=== PATIENT | female | born 1990 | race Caucasian/White ===

== ENCOUNTER 2017-02-08 01:54 | Emergency (ER) | payer SELFPAY ==
--- NOTE | 2017-02-08 06:48 | ED NURSING NOTES ---
Clinical Report - Nurses [facility] [address] [place] [address] 02/08/2017 1:57 Patient: HONG ESCAMILLA TRIAGE Triage time 01:59. Acuity: LEVEL 3. Chief Complaint: DEPRESSION and SUICIDAL THOUGHTS. --02:04 Cynthia RBrookeN. 01:59 02/08/17. BP: 132/87. HR: 87. RR: 18. O2 saturation: 97%. Temp: 98.2 F. Pain level now: 010. --02:04 Cynthia RBrookeN. Weight: 77.1 kg. Height/Length: 67 inches. BMI: 26.6. --02:03 Cynthia R.N. Medications None. --02:00 Cynthia RBrookeN. Allergies No Known Drug Allergy. --02:00 Cynthia RBrookeN. History Historian: patient. Arrived in police custody. Onset: just prior to arrival. ( pt was picked up at the safeway by police, pt was drinking motor oil and beers). Treatment SUPERVISOR LACE TEARING: None. PAST MEDICAL HX: Immunizations: up-to-date. Last normal menstrual period- 2 weeks ago. SOCIAL HX: Heavy tobacco smoker- less than 1 pack per day. Regular alcohol use; consumes beer daily and liquor daily. Last drink was just prior to arrival. Patient smells of ETOH in the emergency department. History of drug use: marijuana. Recently used drugs yesterday. No infectious disease exposure. SELF HARM ASSESSMENT: A self harm assessment was performed. The patient answered "yes" to the question "Have you recently felt down, depressed, or hopeless?", "Have you noticed less interest or pleasure in doing things?", "Do you have thoughts of harming or killing yourself?", "Are you here because you tried to hurt yourself?" and "Have you ever tried to hurt yourself before today?" and "no" to the question "Have you recently had thoughts about harming or killing others?" and "Do you have any dangerous items in your possession?". She was placed in a safe room in direct sight of the nurses station. Clothes and valuables were removed and placed at the nurses station. ABUSE ASSESSMENT: Abuse assessment: The patient was asked "Do you feel safe in your home?" The patient was hesitant in responding to questions. ED physician notified. --02:04 Khadijah Marie The patient describes feelings of depression. --02:04 Khadijah Marie ( pt states she had a fight with her boyfriend yulisa, pt actually denies drinking motor oil but police state she was seen drinking motor oil). --02:16 Khadijah Marie PROBLEMS: Depression. --02:01 Khadijah Marie ADDITIONAL SURGERIES: no known surgeries. Interventions ID band on patient. To treatment room. --02:04 Khadijah Marie PHYSICAL ASSESSMENT Ambulatory to room. GENERAL / NEURO / PSYCH: Alert. Oriented X 4. Appears anxious. Speech within normal limits. Patient's mood/affect appears tearful. Patient appears calm and cooperative. Good eye contact. Patient appears well-nourished and neat and clean. RESPIRATORY: Respirations not labored. Breath sounds within normal limits. CVS: Normal heart rate and rhythm. Capillary refill less than 2 seconds. GI / : Abdomen soft and nontender. Bowel sounds within normal limits. SKIN: Skin intact. Skin is warm and dry. Skin color is within normal limits. --02:05 Khadijah Marie NURSING PROGRESS NOTES 02:06 02/08/2017 Site #1 started via IV in the right hand with an 20g angiocath, with aseptic technique and good blood return; one attempt. Blood drawn: rainbow set. Labeled in the presence of the patient and sent to the lab. Saline lock flushed with 10 mL saline. --02:06 Jon Marie. clinical research monitor, pulse oximeter and NIBP monitor placed on patient. Patient gowned. Patient identifiers checked. Call light placed in reach. Side rails up. Bed placed in lowest position. Brakes of bed on. --02:06 Khadijah Marie ( pt resting in bed at this time, pt is tearful at this time, boyfriend did come to the hospital but was not allowed back to see the pt, pt was aware that he was here, boyfriend was told pt was here and safe per pt's request but no other information was given to the boyfriend). --03:17 Khadijah Marie ( pt resting in bed, no distress noted). --04:09 Khadijah Marie 04:09 02/08/17. BP: 102/67. HR: 84. RR: 18. O2 saturation: 97%. Temp: deferred. Pain level now: 010. --04:10 Jon Marie. BREATHALYZER: Breathalyzer (.89). --04:46 Khadijah Marie ( called PAT team and was told they do not do evaluation on involuntary with no insurance. I spoke to Kasie.). --04:57 Khadijah Marie ( Vincent called PAT team back and they are in route. The PAT team thought the pt had already been evaluated and we were asking for an involuntary.). --05:00 Khadijah Marie ( pt ambulated tot he restroom, no complications, pt awaiting PAT team arrival at this time.). --05:23 Khadijah Marie ( PAT team in room). --06:37 Khadijah Marie DISPOSITION / DISCHARGE 06:51 02/08/2017 Site #1 removed upon discharge. Catheter intact. Bandaid applied. --06:51 Khadijah Marie Departure time: 06:53. Condition at departure: improved. No learning barriers present. Discharge instructions provided and reviewed with the patient. Reviewed warnings (stay with responsible adult). Reviewed referral to a psychiatrist and crisis hotline for followup. Summary of care provided to patient via paper. Patient verbalized understanding. Written instructions provided in Spanish. No medication instructions, treatment instructions, diet instructions, activity restrictions or note given. No follow up contact number given or stop smoking instructions. The patient was discharged by the physician. She was discharged home and accompanied by family. She left the Emergency Department ambulatory and via private vehicle. Parent driving. FALL RISK ASSESSMENT: Fall risk assessment completed. No fall risk identified. --06:53 Khadijah Marie 06:51 02/08/17. BP: 136/74. HR: 84. RR: 18. O2 saturation: 99%. Temp: deferred. Pain level now: 010. --06:53 Khadijah Marie Locked/Released at 02/08/2017 6:56 by Khadijah Marie
--- NOTE | 2017-02-08 06:48 | ED CLINICAL REPORT ---
Clinical Report - Physicians/Mid Levels [facility] [address] [place] [address] 02/08/2017 1:57 Patient: HONG ESCAMILLA Time Seen: 02:20 Feb 08 2017. Historian- patient and police. Referred by patient's friend. CPT: ER phys charges level 4 (#[id number]). HISTORY OF PRESENT ILLNESS Chief Complaint: DEPRESSED and SUICIDAL THOUGHTS and (( pt states she had a fight with her boyfriend yulisa, pt actually denies drinking motor oil but police state she was seen drinking motor oil).). This started just prior to arrival. The patient has experienced situational problems. Recent alcohol consumption. Has been depressed and angry. The symptoms are described as moderate. No injury is present. Similar symptoms previously: REVIEW OF SYSTEMS No headache, dizziness, weakness, chest pain or palpitations. No abdominal pain, vomiting, diarrhea, black stools or fever. No sore throat, cough, difficulty breathing, skin rash or enlarged lymph nodes. All systems otherwise negative, except as recorded above. PAST HISTORY Depression. Additional Surgeries: no known surgeries. Medications: None. Allergies: No Known Drug Allergy. SOCIAL HISTORY Heavy tobacco smoker (cigarette)- 1 pack per day. Occasional alcohol use. History of drug use: marijuana. ADDITIONAL NOTES The nursing notes have been reviewed. PHYSICAL EXAM Vital Signs: 02/08/2017 01:59 BP: 132/87. HR: 87. RR: 18. O2 saturation: 97%. Temp: 98.2 F. Pain level now: 0/10. Appearance: Alert. No acute distress. Appearance is normal. Eyes: Pupils equal, round and reactive to light. Neck: Normal inspection. CVS: Normal heart rate and rhythm. Heart sounds normal. Respiratory: Breath sounds normal. Chest nontender. Abdomen: Soft and nontender. Back: No tenderness. Skin: Skin warm. Normal skin color. Extremities: Extremities exhibit normal ROM. Psych / Neuro: Oriented X 3. Appears depressed. Speech normal. Cognition normal. Thought process and content normal. Insight and judgement normal. Cranial nerves normal (as tested). No cerebellar findings. No motor deficit. No sensory deficit. Reflexes normal. LABS, X-RAYS, AND EKG Laboratory Tests: UA-Culture if indicated: (TOMASA: 02/08/2017 02:02) ( [facility] 02/08/[facility] 02:32) Final results Test Result Flag Units (Reference) URINE COLOR YELLOW URINE APPEARANCE CLEAR URINE GLUCOSE NEGATIVE (NEGATIVE) URINE BILIRUBIN NEGATIVE (NEGATIVE) URINE KETONE NEGATIVE (NEGATIVE) URINE SPECIFIC GRAVITY 1.020 (1.010-1.030) URINE PH 6.5 (5.0-8.0) URINE PROTEIN NEGATIVE (NEGATIVE) URINE UROBILINOGEN 0.2 EU/dL (0.2-1.0) URINE NITRITE NEGATIVE (NEGATIVE) URINE BLOOD NEGATIVE (NEGATIVE) URINE LEUK ESTERASE NEGATIVE (NEGATIVE) URINE RBC 0-1 rbc/hpf (0-1) URINE WBC 0-1 wbc/hpf (0-1) URINE EPITHELIAL CELLS 0-1 EPI/hpf (0-5) URINE BACTERIA NONE SEEN (NONE SEEN) URINE COMMENT CULT NOT INDICATED URINE CULTURES ARE SET-UP BASED ON THE FOLLOWING CRITERIA:POSITIVE NITRITEPOSITIVE LEUKOCYTE ESTERASEGREATER THAN 10 WHITE BLOOD CELLSMODERATE (2+) OR GREATER BACTERIA Urine: (TOMASA: 02/08/2017 02:02) ( [facility] 02/08/2017 02:24) Final results Test Result Flag Units (Reference) URINE NEGATIVE CBC w Diff: (TOMASA: 02/08/2017 02:02) ( [facility] 02/08/2017 02:16) Final results Test Result Flag Units (Reference) WHITE BLOOD COUNT 12.6 H K/uL (4.5-11.5) RED BLOOD COUNT 4.35 M/uL (4.00-5.20) HEMOGLOBIN 14.0 gm/dL (12.0-16.0) HEMATOCRIT 42.0 % (36.0-46.0) MEAN CELL VOLUME 97 fL (80-100) MEAN CORPUSCULAR HGB 32 pg (26-34) MEAN CORPUSCULAR HGB CONC 33 g/dL (31-37) RED CELL DISTRIBUTION WIDTH 14.0 % (11.6-14.8) PLATELET COUNT 251 K/uL (150-400) NEUTROPHIL % 67.5 % (50-75) LYMPH % 25.0 % (25-40) MONO % 5.0 % (3-14) EOSINOPHIL % 1.8 % (0-4) BASOPHIL % 0.7 % (0-2) Salicylate Level: (TOMASA: 02/08/2017 02:02) ( [facility] 02/08/2017 02:29) Final results Test Result Flag Units (Reference) SALICYLATE 4.9 mg/dL (2.8-20) Acetaminophen Level: (TOMASA: 02/08/2017 02:02) ( [facility] 02/08/2017 02:29) Final results Test Result Flag Units (Reference) ACETAMINOPHEN < 3 L ug/mL (10-30) Urine Drug Screen: (TOMASA: 02/08/2017 02:02) ( [facility] 02/08/2017 02:34) Final results Test Result Flag Units (Reference) AMPHETAMINE/METHAMPHETAMINE NEGATIVE (NEGATIVE) BARBITURATE NEGATIVE (NEGATIVE) BENZODIAZEPINE NEGATIVE (NEGATIVE) CANNABINOID POSITIVE H (NEGATIVE) COCAINE POSITIVE H (NEGATIVE) ECSTASY NEGATIVE (NEGATIVE) METHADONE NEGATIVE (NEGATIVE) OPIATE NEGATIVE (NEGATIVE) The urine drug screen is a qualitative screening test fordrug overdose and abuse. All screen results should beconsidered as presumptive.Drugs screened for are as follows:BenzodiazepinesCocaineAmphetamines/MetamphetaminesTHC (Tetrahydrocannabinol)OpiatesBarbituratesEcstasyMethadonePositive results are unconfirmed. For confirmation, notifythe lab for the specimen to be sent to the reference lab.All confirmations must be performed by a differentmethodology.The ingestion of natural herbal and plant productscontaining Ephedra/Ephedra metabolites can produce in urineone or more substances capable of cross reacting withamphetamine/methamphetamine immunoassays. These testsprovide a preliminary result only. A more specificalternative chemical method must be used to obtain aconfirmed analytical result. CMP: (TOMASA: 02/08/2017 02:02) ( Msg[facility]cv[facility] 02/08/2017 02:29) Final results Test Result Flag Units (Reference) GLUCOSE 127 H mg/dL (70-110) BUN 6 L mg/dL (7-18) CREATININE 0.7 mg/dL (0.6-1.3) Estimated GFR >60 mL/min Estimated GFR- >60 mL/min Note: Persistent reduction over 3 months in eGFR<60 mL/min/1.73 m2 defines CKD. Patients with eGFR values>=60 mL/min/1.73 m2 may also have CKD if evidence ofpersistent proteinuria. Additional information may be foundat www.kidney.org. SODIUM 143 mmol/L (136-145) POTASSIUM 3.6 mmol/L (3.5-5.1) CHLORIDE 106 mmol/L (98-107) CARBON DIOXIDE 21 mmol/L (21-32) CALCIUM 8.5 mg/dL (8.5-10.1) TOTAL PROTEIN 7.9 g/dL (6.4-8.2) ALBUMIN 3.9 g/dL (3.3-5.0) BILIRUBIN, TOTAL 0.3 mg/dL (0.0-1.0) ALKALINE PHOSPHATASE 101 U/L (46-116) AST (SGOT) 26 U/L (15-37) ALT (SGPT) 34 U/L (12-78) ETHYL ALCOHOL 160 H mg/dL (3-10) . PROGRESS AND PROCEDURES Course of Care: PAT team here and feels comfortable sending the patient home. Has no harm contract , counselor set up and agreement to call crisis line for worsening condition. Will go home with Mom. Is planning to go to work today. Patient/family counseled. Disposition: Discharged. Condition: stable. 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 Substance abuse problems: abuse of cocaine. INSTRUCTIONS Stay with responsible adult family member (or other responsible adult). (Call crisis line as needed. Follow no harm contract get to counseling appointment.). Warnings: Further evaluation is necessary. GENERAL WARNINGS: Return or contact your physician immediately if your condition worsens or changes unexpectedly, if not improving as expected, or if other problems arise. Follow-up: Follow up with your doctor in one week. Call for an appointment. Understanding of the discharge instructions verbalized by patient and parent. (Electronically signed by Woo Todd MD 02/12/2017 20:54)
--- NOTE | 2017-02-08 06:48 | ED ORDER SUMMARY ---
..... Patient: HONG ESCAMILLA OrderSheet [facility] VisitID: [id number] [address] [place] [address] 26y, F Registration Date/Time: 02/08/2017 ORDER SHEET Weight: 77.1 kg Allergies: No Known Drug Allergy GENERAL ORDERS: Urine Drug Screen Urgent (02:07 02/08/2017 TBowen R.N. per protocol) (Ack 2:13 CHagerty ER Cleat Feeder) (2:15 TBowen R.N.) UA-Culture if indicated Urgent (02:07 02/08/2017 TBowen R.N. per protocol) (Ack 2:13 CHagerty ER Cleat Feeder) (2:15 TBowen R.N.) Urine Urgent (02:02/08/2017 TBowen R.N. per protocol) (Ack 2:13 CHagerty ER Cleat Feeder) (2:15 TBowen R.N.) CBC w Diff Urgent (02:07 02/08/2017 TBowen R.N. per protocol) (Ack 2:13 CHagerty ER Cleat Feeder) (2:15 TBowen R.N.) CMP Urgent (02:07 02/08/2017 TBowen R.N. per protocol) (Ack 2:13 CHagerty ER Cleat Feeder) (2:15 TBowen R.N.) Ethyl Alcohol Urgent (02:07 02/08/2017 TBowen R.N. per protocol) (Ack 2:13 CHagerty ER Cleat Feeder) (2:15 TBowen R.N.) Acetaminophen Level Urgent (02:08 02/08/2017 TBowen R.N. per protocol) (Ack 2:13 CHagerty ER Cleat Feeder) (2:15 TBowen R.N.) Salicylate Level Urgent (02:02/08/2017 TBowen R.N. per protocol) (Ack 2:13 CHagerty ER Cleat Feeder) (2:15 TBowen R.N.) MEDICATION ORDERS: IV FLUIDS: ORDER SHEET NOTES: [Electronically signed by Gloria Salazar R.N. (06:56 02/08/2017)] [Electronically signed by Woo Todd MD (20:54 02/12/2017)] [Electronically locked/signed by Gloria Salazar R.N. (06:56 02/08/2017)]
--- NOTE | 2017-02-08 06:48 | ED ORDER SUMMARY ---
..... Patient: HONG ESCAMILLA OrderSheet [facility] VisitID: [id number] [address] [place] [address] 26y, F Registration Date/Time: 02/08/2017 ORDER SHEET Weight: 77.1 kg Allergies: No Known Drug Allergy GENERAL ORDERS: Urine Drug Screen Urgent (02:07 02/08/2017 TBowen R.N. per protocol) (Ack 2:13 CHagerty ER Lorry Weigher) (2:15 TBowen R.N.) UA-Culture if indicated Urgent (02:07 02/08/2017 TBowen R.N. per protocol) (Ack 2:13 CHagerty ER Lorry Weigher) (2:15 TBowen R.N.) Urine Urgent (02:02/08/2017 TBowen R.N. per protocol) (Ack 2:13 CHagerty ER Lorry Weigher) (2:15 TBowen R.N.) CBC w Diff Urgent (02:07 02/08/2017 TBowen R.N. per protocol) (Ack 2:13 CHagerty ER Lorry Weigher) (2:15 TBowen R.N.) CMP Urgent (02:07 02/08/2017 TBowen R.N. per protocol) (Ack 2:13 CHagerty ER Lorry Weigher) (2:15 TBowen R.N.) Ethyl Alcohol Urgent (02:07 02/08/2017 TBowen R.N. per protocol) (Ack 2:13 CHagerty ER Lorry Weigher) (2:15 TBowen R.N.) Acetaminophen Level Urgent (02:08 02/08/2017 TBowen R.N. per protocol) (Ack 2:13 CHagerty ER Lorry Weigher) (2:15 TBowen R.N.) Salicylate Level Urgent (02:02/08/2017 TBowen R.N. per protocol) (Ack 2:13 CHagerty ER Lorry Weigher) (2:15 TBowen R.N.) MEDICATION ORDERS: IV FLUIDS: ORDER SHEET NOTES: [Electronically signed by Gloria Salazar R.N. (06:56 02/08/2017)] [Electronically signed by Woo Todd MD (20:54 02/12/2017)] [Electronically locked/signed by Gloria Salazar R.N. (06:56 02/08/2017)]
--- NOTE | 2017-02-08 06:48 | ED CLINICAL REPORT ---
Clinical Report - Physicians/Mid Levels [facility] [address] [place] [address] 02/08/2017 1:57 Patient: HONG ESCAMILLA Time Seen: 02:20 Feb 08 2017. Historian- patient and police. Referred by patient's friend. CPT: ER phys charges level 4 (#[id number]). HISTORY OF PRESENT ILLNESS Chief Complaint: DEPRESSED and SUICIDAL THOUGHTS and (( pt states she had a fight with her boyfriend yulisa, pt actually denies drinking motor oil but police state she was seen drinking motor oil).). This started just prior to arrival. The patient has experienced situational problems. Recent alcohol consumption. Has been depressed and angry. The symptoms are described as moderate. No injury is present. Similar symptoms previously: REVIEW OF SYSTEMS No headache, dizziness, weakness, chest pain or palpitations. No abdominal pain, vomiting, diarrhea, black stools or fever. No sore throat, cough, difficulty breathing, skin rash or enlarged lymph nodes. All systems otherwise negative, except as recorded above. PAST HISTORY Depression. Additional Surgeries: no known surgeries. Medications: None. Allergies: No Known Drug Allergy. SOCIAL HISTORY Heavy tobacco smoker (cigarette)- 1 pack per day. Occasional alcohol use. History of drug use: marijuana. ADDITIONAL NOTES The nursing notes have been reviewed. PHYSICAL EXAM Vital Signs: 02/08/2017 01:59 BP: 132/87. HR: 87. RR: 18. O2 saturation: 97%. Temp: 98.2 F. Pain level now: 0/10. Appearance: Alert. No acute distress. Appearance is normal. Eyes: Pupils equal, round and reactive to light. Neck: Normal inspection. CVS: Normal heart rate and rhythm. Heart sounds normal. Respiratory: Breath sounds normal. Chest nontender. Abdomen: Soft and nontender. Back: No tenderness. Skin: Skin warm. Normal skin color. Extremities: Extremities exhibit normal ROM. Psych / Neuro: Oriented X 3. Appears depressed. Speech normal. Cognition normal. Thought process and content normal. Insight and judgement normal. Cranial nerves normal (as tested). No cerebellar findings. No motor deficit. No sensory deficit. Reflexes normal. LABS, X-RAYS, AND EKG Laboratory Tests: UA-Culture if indicated: (TOMASA: 02/08/2017 02:02) ( [facility] 02/08[facility] 02:32) Final results Test Result Flag Units (Reference) URINE COLOR YELLOW URINE APPEARANCE CLEAR URINE GLUCOSE NEGATIVE (NEGATIVE) URINE BILIRUBIN NEGATIVE (NEGATIVE) URINE KETONE NEGATIVE (NEGATIVE) URINE SPECIFIC GRAVITY 1.020 (1.010-1.030) URINE PH 6.5 (5.0-8.0) URINE PROTEIN NEGATIVE (NEGATIVE) URINE UROBILINOGEN 0.2 EU/dL (0.2-1.0) URINE NITRITE NEGATIVE (NEGATIVE) URINE BLOOD NEGATIVE (NEGATIVE) URINE LEUK ESTERASE NEGATIVE (NEGATIVE) URINE RBC 0-1 rbc/hpf (0-1) URINE WBC 0-1 wbc/hpf (0-1) URINE EPITHELIAL CELLS 0-1 EPI/hpf (0-5) URINE BACTERIA NONE SEEN (NONE SEEN) URINE COMMENT CULT NOT INDICATED URINE CULTURES ARE SET-UP BASED ON THE FOLLOWING CRITERIA:POSITIVE NITRITEPOSITIVE LEUKOCYTE ESTERASEGREATER THAN 10 WHITE BLOOD CELLSMODERATE (2+) OR GREATER BACTERIA Urine: (TOMASA: 02/08/2017 02:02) ( [facility] 02/08/2017 02:24) Final results Test Result Flag Units (Reference) URINE NEGATIVE CBC w Diff: (TOMASA: 02/08/2017 02:02) ( [facility] 02/08/2017 02:16) Final results Test Result Flag Units (Reference) WHITE BLOOD COUNT 12.6 H K/uL (4.5-11.5) RED BLOOD COUNT 4.35 M/uL (4.00-5.20) HEMOGLOBIN 14.0 gm/dL (12.0-16.0) HEMATOCRIT 42.0 % (36.0-46.0) MEAN CELL VOLUME 97 fL (80-100) MEAN CORPUSCULAR HGB 32 pg (26-34) MEAN CORPUSCULAR HGB CONC 33 g/dL (31-37) RED CELL DISTRIBUTION WIDTH 14.0 % (11.6-14.8) PLATELET COUNT 251 K/uL (150-400) NEUTROPHIL % 67.5 % (50-75) LYMPH % 25.0 % (25-40) MONO % 5.0 % (3-14) EOSINOPHIL % 1.8 % (0-4) BASOPHIL % 0.7 % (0-2) Salicylate Level: (TOMASA: 02/08/2017 02:02) ( [facility] 02/08/2017 02:29) Final results Test Result Flag Units (Reference) SALICYLATE 4.9 mg/dL (2.8-20) Acetaminophen Level: (TOMASA: 02/08/2017 02:02) ( [facility] 02/08/2017 02:29) Final results Test Result Flag Units (Reference) ACETAMINOPHEN < 3 L ug/mL (10-30) Urine Drug Screen: (TOMASA: 02/08/2017 02:02) ( [facility] 02/08/2017 02:34) Final results Test Result Flag Units (Reference) AMPHETAMINE/METHAMPHETAMINE NEGATIVE (NEGATIVE) BARBITURATE NEGATIVE (NEGATIVE) BENZODIAZEPINE NEGATIVE (NEGATIVE) CANNABINOID POSITIVE H (NEGATIVE) COCAINE POSITIVE H (NEGATIVE) ECSTASY NEGATIVE (NEGATIVE) METHADONE NEGATIVE (NEGATIVE) OPIATE NEGATIVE (NEGATIVE) The urine drug screen is a qualitative screening test fordrug overdose and abuse. All screen results should beconsidered as presumptive.Drugs screened for are as follows:BenzodiazepinesCocaineAmphetamines/MetamphetaminesTHC (Tetrahydrocannabinol)OpiatesBarbituratesEcstasyMethadonePositive results are unconfirmed. For confirmation, notifythe lab for the specimen to be sent to the reference lab.All confirmations must be performed by a differentmethodology.The ingestion of natural herbal and plant productscontaining Ephedra/Ephedra metabolites can produce in urineone or more substances capable of cross reacting withamphetamine/methamphetamine immunoassays. These testsprovide a preliminary result only. A more specificalternative chemical method must be used to obtain aconfirmed analytical result. CMP: (TOMASA: 02/08/2017 02:02) ( MsgRcvd 02/08/2017 02:29) Final results Test Result Flag Units (Reference) GLUCOSE 127 H mg/dL (70-110) BUN 6 L mg/dL (7-18) CREATININE 0.7 mg/dL (0.6-1.3) Estimated GFR >60 mL/min Estimated GFR- >60 mL/min Note: Persistent reduction over 3 months in eGFR<60 mL/min/1.73 m2 defines CKD. Patients with eGFR values>=60 mL/min/1.73 m2 may also have CKD if evidence ofpersistent proteinuria. Additional information may be foundat www.kidney.org. SODIUM 143 mmol/L (136-145) POTASSIUM 3.6 mmol/L (3.5-5.1) CHLORIDE 106 mmol/L (98-107) CARBON DIOXIDE 21 mmol/L (21-32) CALCIUM 8.5 mg/dL (8.5-10.1) TOTAL PROTEIN 7.9 g/dL (6.4-8.2) ALBUMIN 3.9 g/dL (3.3-5.0) BILIRUBIN, TOTAL 0.3 mg/dL (0.0-1.0) ALKALINE PHOSPHATASE 101 U/L (46-116) AST (SGOT) 26 U/L (15-37) ALT (SGPT) 34 U/L (12-78) ETHYL ALCOHOL 160 H mg/dL (3-10) . PROGRESS AND PROCEDURES Course of Care: PAT team here and feels comfortable sending the patient home. Has no harm contract , counselor set up and agreement to call crisis line for worsening condition. Will go home with Mom. Is planning to go to work today. Patient/family counseled. Disposition: Discharged. Condition: stable. 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 Substance abuse problems: abuse of cocaine. INSTRUCTIONS Stay with responsible adult family member (or other responsible adult). (Call crisis line as needed. Follow no harm contract get to counseling appointment.). Warnings: Further evaluation is necessary. GENERAL WARNINGS: Return or contact your physician immediately if your condition worsens or changes unexpectedly, if not improving as expected, or if other problems arise. Follow-up: Follow up with your doctor in one week. Call for an appointment. Understanding of the discharge instructions verbalized by patient and parent. (Electronically signed by Woo Todd MD 02/12/2017 20:54)
--- NOTE | 2017-02-12 20:55 | ED MED RECONCILIATION SUMMARY ---
Patient: HONG ESCAMILLA Medication Reconciliation Report [facility] VisitID: [id number] [address] [place] [address] 26y, F Registration Date/Time: 02/08/2017 Weight: 77.1 kg Height/Length: 67 in. BMI: 26.6 ALLERGIES: No Known Drug Allergy The patient's Home Medications are listed below: NONE. The source(s) of the original Home Medication information: Not obtained. The following Medications were given to the patient in the Emergency Department: None. The following Medications were prescribed to the patient: None.
--- NOTE | 2017-02-12 20:55 | ED DISCHARGE INSTRUCTIONS ---
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 Substance abuse problems: abuse of cocaine. INSTRUCTIONS Stay with responsible adult family member (or other responsible adult). (Call crisis line as needed. Follow no harm contract get to counseling appointment.). Warnings: Further evaluation is necessary. GENERAL WARNINGS: Return or contact your physician immediately if your condition worsens or changes unexpectedly, if not improving as expected, or if other problems arise. Follow-up: Follow up with your doctor in one week. Call for an appointment. Understanding of the discharge instructions verbalized by patient and parent. ADDITIONAL INFORMATION Depression Depression is one of the most common mental health problems today. It is not just a state of unhappiness or sadness. It is a true disease. The cause seems to be related to a decrease in chemicals that transmit signals in the brain. Having a family history of depression, alcoholism or suicide increases the risk. Chronic illness, chronic pain, migraine headaches and high emotional stress also increase the risk. Depression can cause many different symptoms, such as: -- Loss of appetite -- Over-eating -- Not being able to sleep -- Sleeping too much -- Tiredness not related to physical exertion -- Restlessness or irritability -- Slowness of movement or speech -- Feeling depressed or withdrawn -- Loss of interest in things you once enjoyed -- Difficulty in concentrating, poor memory, have trouble making decisions -- Thoughts of harming or killing oneself, or thoughts that life is not worth living -- Low self-esteem The best treatment for depression is a combination of medicine and psychotherapy. Antidepressant medicines can reduce suffering and can improve the ability to function during the depressed period. Therapy can offer emotional support and help you understand emotional factors that may be causing the depression. Home Care: 1) Be kind to yourself. Make it a point to do things that you enjoy (gardening, walking in nature, going to a movie, etc.). Reward yourself for small successes. 2) Take care of your physical body. Eat a balanced diet (low in saturated fat and high in fruits and vegetables). Establish an exercise plan at least 3 times a week for 30 minutes. Even mild-moderate exercise (like brisk walking) can make you feel better. 3) Avoid alcohol, which can make depression worse. Follow-Up with your doctor as advised. It is important to keep in contact with a health care provider until your symptoms begin to improve. Get Prompt Medical Attention if any of the following occur: -- Feeling extreme depression, fear, anxiety, or anger toward yourself or others -- Feeling out of control -- Feeling that you may try to harm yourself or another -- Hearing voices that others do not hear -- Seeing things that others do not see -- Cant sleep or eat for 3 days in a row Depression Depression is one of the most common mental health problems today. It is not just a state of unhappiness or sadness. It is a true disease. The cause seems to be related to a decrease in chemicals that transmit signals in the brain. Having a family history of depression, alcoholism or suicide increases the risk. Chronic illness, chronic pain, migraine headaches and high emotional stress also increase the risk. Depression can cause many different symptoms, such as: -- Loss of appetite -- Over-eating -- Not being able to sleep -- Sleeping too much -- Tiredness not related to physical exertion -- Restlessness or irritability -- Slowness of movement or speech -- Feeling depressed or withdrawn -- Loss of interest in things you once enjoyed -- Difficulty in concentrating, poor memory, have trouble making decisions -- Thoughts of harming or killing oneself, or thoughts that life is not worth living -- Low self-esteem The best treatment for depression is a combination of medicine and psychotherapy. Antidepressant medicines can reduce suffering and can improve the ability to function during the depressed period. Therapy can offer emotional support and help you understand emotional factors that may be causing the depression. Home Care: 1) Be kind to yourself. Make it a point to do things that you enjoy (gardening, walking in nature, going to a movie, etc.). Reward yourself for small successes. 2) Take care of your physical body. Eat a balanced diet (low in saturated fat and high in fruits and vegetables). Establish an exercise plan at least 3 times a week for 30 minutes. Even mild-moderate exercise (like brisk walking) can make you feel better. 3) Avoid alcohol, which can make depression worse. Follow-Up with your doctor as advised. It is important to keep in contact with a health care provider until your symptoms begin to improve. Get Prompt Medical Attention if any of the following occur: -- Feeling extreme depression, fear, anxiety, or anger toward yourself or others -- Feeling out of control -- Feeling that you may try to harm yourself or another -- Hearing voices that others do not hear -- Seeing things that others do not see -- Cant sleep or eat for 3 days in a row You have been given the following additional information: Depression Depression Stay with responsible adult family member (or other responsible adult). (Electronically signed by Woo Todd MD 02/12/2017 20:54)
--- NOTE | 2017-02-12 20:55 | ED MED RECONCILIATION SUMMARY ---
Patient: HONG ESCAMILLA Medication Reconciliation Report [facility] VisitID: [id number] [address] [place] [place] [address] 26y, F Registration Date/Time: 02/08/2017 Weight: 77.1 kg Height/Length: 67 in. BMI: 26.6 ALLERGIES: No Known Drug Allergy The patient's Home Medications are listed below: NONE. The source(s) of the original Home Medication information: Not obtained. The following Medications were given to the patient in the Emergency Department: None. The following Medications were prescribed to the patient: None.
--- NOTE | 2017-02-12 20:55 | ED MAR SUMMARY ---
..... Medication Administration Record [facility] [address] [place], [place] [id number] Patient: MINNA ESCAMILLAN Omaira Visit ID: [id number] 26y, F Weight: 77.1 kg Height/Length: 67 in BMI: 26.6 ALLERGIES: No Known Drug Allergy
--- NOTE | 2017-02-12 20:55 | ED MAR SUMMARY ---
..... Medication Administration Record [facility] [address] [place], [place] [id number] Patient: MINNA ESCAMILLAN Omaira Visit ID: [id number] 26y, F Weight: 77.1 kg Height/Length: 67 in BMI: 26.6 ALLERGIES: No Known Drug Allergy
== END 2017-02-08 06:54 | disposition home or self-care (01) ==
LOC: ED SRH 01:54
DX: R45.851 Suicidal ideations (principal); F32.9 Major depressive disorder, single episode, unspecified; F14.10 Cocaine abuse, uncomplicated
CPT/HCPCS: 90004; 90100; 92010; 92760; 92761; 92762; 92763; 92764; 92765; 92766; 92767; 92780; 93070; 95059; 97000